=== PATIENT | male | born 1995 | race African-American/Black ===

== ENCOUNTER 2016-12-22 21:35 | Emergency (ER) | payer OTHER ==
[~2016-12-22] VITALS: Ht 177.8 cm; Wt 81.2 kg
[2016-12-22 22:27] VITALS: BP 138/74
== END 2016-12-23 08:00 | disposition home or self-care (01) ==
LOC: ER 12-23 07:34
DX: K04.7 Periapical abscess without sinus (principal); L50.9 Urticaria, unspecified
CPT/HCPCS: 99283